=== PATIENT | female | born 1960 | race Two or more races ===

== ENCOUNTER 2017-12-25 09:44 | Emergency (ER) | payer BC ==
[~2017-12-25] VITALS: Ht 162.6 cm; Wt 77.0 kg
[2017-12-25] MEDS ORDERED: SODIUM CHLORIDE 0.9% 1,000 ML IV ONE (10:08)
[2017-12-25] MEDS ORDERED: DIPHENHYDRAMINE 50MG/ML VIAL IV ONE (10:15)
[2017-12-25] MEDS ORDERED: FAMOTIDINE 20MG/2ML VIAL IV ONE (10:15)
[2017-12-25] MEDS ORDERED: METHYLPREDNISOLONE SOD SUCC 125 MG/2 ML VIAL IV ONE (10:15)
[2017-12-25 11:56] VITALS: BP 122/79
== END 2017-12-25 12:04 | disposition home or self-care (01) ==
LOC: ER 09:44
DX: L29.9 Pruritus, unspecified (principal); T45.2X5A Adverse effect of vitamins, initial encounter; K21.9 Gastro-esophageal reflux disease without esophagitis; Y92.098 Other place in other non-institutional residence as the place of occurrence of the external cause; Z86.59 Personal history of other mental and behavioral disorders
CPT/HCPCS: 71045; 93005; 96374; 96375; 99285; J1200; J2930; J3490; J7030